=== PATIENT | female | born 1955 | race Caucasian/White ===

== ENCOUNTER → 2016-10-24 | Outpatient (CLI) | payer BC ==
[~2016-10-24] MED LIST: ENOXAPARIN; EST30C VG; GLUC1TAB60 PO; HYDR-3583 PO; LORA1TAB PO; MELA1TAB10 PO; MELATONIN; MULT-608; MULT-608 PO; [UNRECOGNIZED DRUG - CODE]
--- NOTE | 2016-10-26 09:34 | Diagnostic Imaging Report ---
PET/CT. INDICATION: Colon carcinoma, carcinoma of the lung. EXAMINATION: After intravenous administration of 13.97 mCi of F18-FDG, a series of overlapping emission and transmission PET images was obtained. In the coronal, transaxial and sagittal planes, the area imaged extended from the skull base through the upper thighs. FINDINGS: The previous PET/CT exam performed on 10/11/2010 noted a small hypermetabolic focus involving the right lobe of the liver. This had a maximum SUV of 4.2 and this finding was felt to be suspicious for metastatic disease. The CT images do show that there is a 1.4 x 1.5 cm area of diminished density along the anterior aspect of the right lobe of the liver. This finding was not clearly evident on the prior exam. However, there is no hypermetabolic activity in this area to suggest that this area of diminished density is neoplastic in nature. There is a small 0.8 x 1.2 cm rounded area of low density in the midportion of the right lobe of the liver. This was present on the prior study. On the previous exam, this measured approximately 0.9 x 1.0 cm. I suspect that this is a benign process such as a cyst. The liver is otherwise unremarkable. In the left upper lobe of the lung, there is an irregular 1.6 x 2.5 cm partially calcified parenchymal mass with spiculation. This finding was not present on the prior exam and consequently is worrisome for neoplasm. However, the maximum SUV in this area is only 2.5. There is no other hypermetabolic activity within the thorax identified. The remainder of the PET/CT is stable when compared to the previous study. No new area of hypermetabolic activity has developed. There is increased activity about the right shoulder joint. Most likely, this is due to degenerative disease. There is also physiologic activity in the kidneys, bowel, bladder, brain, and heart. IMPRESSION: 1. There is a poorly defined parenchymal density in the left upper lung. This area has a maximum SUV of only 2.4, however. Even so, the CT appearance of the lesion does suggest it is neoplastic in nature. 2. There is no other hypermetabolic focus to suggest the presence of neoplasm. In particular, there is no abnormal activity involving the liver. 3. These results were discussed with Dr. Yola Espinoza. Dictated by: Dictated on workstation # [id number]
== END ==
LOC: RAD 08:15
PROVIDERS: ATTEND Internal Medicine Hematology & Oncology
DX: C18.9 Malignant neoplasm of colon, unspecified (principal); R91.8 Other nonspecific abnormal finding of lung field

== ENCOUNTER 2016-11-29 14:58 | Outpatient (RCR) | payer BC ==
[2016-10-12 14:30] LABS: BASOPHILS % (AUTO) 0 % (0-10); EOSINOPHILS # (AUTO) 0.2 10^3/uL (0.0-0.3); EOSINOPHILS % (AUTO) 5 % (0-10); LYMPHOCYTES # (AUTO) 1.7 X 10^3 (1.0-4.0); LYMPHOCYTES % (AUTO) 33 % (12-44); MEAN CORPUSCULAR HEMOGLOBIN 31 PG (25-34); MEAN CORPUSCULAR HGB CONC 33 G/DL (32-36); MEAN CORPUSCULAR VOLUME 93 FL (80-99); MEAN PLATELET VOLUME 10.8 FL (7.4-10.4); MONOCYTES # (AUTO) 0.5 X 10^3 (0.0-1.0); MONOCYTES % (AUTO) 10 % (0-12); NEUTROPHILS # (AUTO) 2.6 X 10^3 (1.8-7.8); NEUTROPHILS % (AUTO) 52 % (42-75); PLATELET COUNT 147 10^3/uL (130-400); RED BLOOD COUNT 4.19 10^6/uL (4.35-5.85); RED CELL DISTRIBUTION WIDTH 13.1 % (10.0-14.5)
[2016-10-12 15:21] LABS: ALANINE AMINOTRANSFERASE 16 U/L (0-55); ANION GAP 6 MMOL/L (5-14); ASPARTATE AMINO TRANSFERASE 18 U/L (5-34); BILIRUBIN,TOTAL 0.2 MG/DL (0.1-1.0); BLOOD UREA NITROGEN 16 MG/DL (7-18); BUN/CREATININE RATIO 23; CALCIUM 9.1 MG/DL (8.5-10.1); CARBON DIOXIDE 28 MMOL/L (21-32); CHLORIDE 106 MMOL/L (98-107); CREATININE SERUM 0.71 MG/DL (0.60-1.30); GFR ESTIMATED > 60; GLUCOSE 108 MG/DL (70-105); POTASSIUM 4.3 MMOL/L (3.6-5.0); SODIUM 140 MMOL/L (135-145); TOTAL PROTEIN 6.5 G/DL (6.4-8.2)
[~2016-11-29 14:58] MED LIST changes: -EST30C VG; -MELA1TAB10 PO
[2016-11-29 15:16] LABS: BASOPHILS % (AUTO) 0 % (0-10); EOSINOPHILS # (AUTO) 0.2 10^3/uL (0.0-0.3); EOSINOPHILS % (AUTO) 3 % (0-10); LYMPHOCYTES # (AUTO) 1.8 X 10^3 (1.0-4.0); LYMPHOCYTES % (AUTO) 35 % (12-44); MEAN CORPUSCULAR HEMOGLOBIN 31 PG (25-34); MEAN CORPUSCULAR HGB CONC 34 G/DL (32-36); MEAN CORPUSCULAR VOLUME 91 FL (80-99); MEAN PLATELET VOLUME 10.8 FL (7.4-10.4); MONOCYTES # (AUTO) 0.5 X 10^3 (0.0-1.0); MONOCYTES % (AUTO) 11 % (0-12); NEUTROPHILS # (AUTO) 2.5 X 10^3 (1.8-7.8); NEUTROPHILS % (AUTO) 51 % (42-75); PLATELET COUNT 170 10^3/uL (130-400); RED BLOOD COUNT 4.15 10^6/uL (4.35-5.85); RED CELL DISTRIBUTION WIDTH 13.3 % (10.0-14.5)
[2016-11-29 16:01] LABS: PROTHROMBIN TIME PATIENT 12.9 SEC (12.2-14.7)
[2016-11-29 16:09] LABS: ALANINE AMINOTRANSFERASE 13 U/L (0-55); ALBUMIN 3.8 G/DL (3.2-4.5); ANION GAP 5 MMOL/L (5-14); ASPARTATE AMINO TRANSFERASE 17 U/L (5-34); BILIRUBIN,TOTAL 0.3 MG/DL (0.1-1.0); BLOOD UREA NITROGEN 15 MG/DL (7-18); BUN/CREATININE RATIO 22; CALCIUM 8.9 MG/DL (8.5-10.1); CARBON DIOXIDE 26 MMOL/L (21-32); CHLORIDE 108 MMOL/L (98-107); CREATININE SERUM 0.68 MG/DL (0.60-1.30); GFR ESTIMATED > 60; GLUCOSE 91 MG/DL (70-105); POTASSIUM 4.2 MMOL/L (3.6-5.0); SODIUM 139 MMOL/L (135-145); TOTAL PROTEIN 6.3 G/DL (6.4-8.2)
[2016-12-14] MEDS ORDERED: MELA1TAB10 PO (16:44)
[2016-12-14] MEDS ORDERED: EST30C VG (16:44)
== END 2017-01-10 | disposition home or self-care (01) ==
LOC: ONC 14:58
PROVIDERS: ATTEND Internal Medicine Hematology & Oncology
DX: C18.9 Malignant neoplasm of colon, unspecified (principal); C78.7 Secondary malignant neoplasm of liver and intrahepatic bile duct; R91.8 Other nonspecific abnormal finding of lung field
CPT/HCPCS: 36415; 80053; 82378; 85025; 85610; 99213; 99214

== ENCOUNTER 2016-12-14 08:12 | Day surgery (SDC) | payer BC ==
[2016-12-14] VITALS (19 sets, daily range): BP systolic 106–143; BP diastolic 57–74
[~2016-12-14] VITALS: Ht 171.4 cm; Wt 72.8 kg
[2016-12-14 09:25] LABS: MEAN PLATELET VOLUME 11.5 FL (7.4-10.4); RED BLOOD COUNT 4.42 10^6/uL (4.35-5.85); RED CELL DISTRIBUTION WIDTH 13.1 % (10.0-14.5); WHITE BLOOD COUNT 3.8 10^3/uL (4.3-11.0)
[2016-12-14 09:33] LABS: PROTHROMBIN TIME PATIENT 12.8 SEC (12.2-14.7)
[2016-12-14] MEDS ORDERED: fentaNYL INJECTION 100 MCG/2 ML AMP ONE (09:48)
[2016-12-14] MEDS ORDERED: LIDOCAINE 1% INJ 20 ML (XYLOCAINE) VIAL ONE (10:04)
[2016-12-14] MEDS ORDERED: fentaNYL INJECTION 100 MCG/2 ML AMP IVP ONE (10:15)
--- NOTE | 2016-12-14 10:55 | Pre-Procedure Progress Note ---
Pre-Procedure Progress Note H&P Reviewed The H&P was reviewed, patient examined and no changes noted. Date H&P Reviewed: Dec 14, 2016 Time H&P Reviewed: 09:40 Pre-Procedure Diagnosis: lung nodule BALDO WRIGHT MD Dec 14, 2016 10:55
[2016-12-14] MEDS ORDERED: LIDOCAINE 1% INJ 20 ML (XYLOCAINE) VIAL INJ ONE (11:00)
[2016-12-14] MEDS ORDERED: HYDROcodone/APAP 5 MG/325 MG (LORTAB) TAB PO PRN (11:00)
--- NOTE | 2016-12-14 11:38 | Diagnostic Imaging Report ---
EXAMINATION: CT-guided biopsy-lung. INDICATION: Left upper lobe lung nodule. Current history and physical and other medical records are reviewed prior to the procedure. CONSENT: Informed consent was obtained from the patient. The risks, benefits, potential complications and alternatives were reviewed and all questions answered to the patient's satisfaction. The patient's vital signs, cardiac rhythm, and pulse oximetry were observed throughout the procedure by qualified nursing personnel. Sedation/medications: none. FINDINGS: Left upper lobe nodule. PROCEDURE: After maximal sterile barrier technique preparation and draping, 1% lidocaine was utilized for local anesthesia. With the patient in supine position, and via anterior and posterior approach, a 19-gauge guide needle is introduced into the left upper lobe lung nodule under CT scan guidance. After confirming adequate positioning with saved CT images, multiple 20 gauge core biopsy specimens were obtained. 2 cc of autologous blood patch injected in the tract as the guide needle was removed The patient tolerated the procedure well. There is unfortunately development of about 15 % pneumothorax. This is not accompanied by shortness of breath or chest pain and repeat CT scan after 5 minutes of finishing the biopsy demonstrate stable pneumothorax. IMPRESSION: 1. Successful CT-guided biopsy of upper lobe pulmonary nodule. 2. Asymptomatic 15% left pneumothorax. This will be monitored with the chest x-rays. A pneumothorax tube is not needed at this time. Dictated by: Dictated on workstation # [id number]
[2016-12-14] MEDS ORDERED: EST30C VG ×2 (16:44)
[2016-12-14] MEDS ORDERED: MELA1TAB10 PO ×2 (16:44)
--- NOTE | 2016-12-14 18:21 | Diagnostic Imaging Report ---
Portable upright radiograph of the chest. INDICATION: Post lung biopsy. FINDINGS: There is a 10% left pneumothorax. Lung sutures are seen in the perihilar and upper left lung. The right lung is clear. The heart size is borderline enlarged. No pleural effusion. IMPRESSION: 10% left pneumothorax. Stable or minimally smaller compared to the recent CT. Dictated by: Dictated on workstation # [id number]
--- NOTE | 2016-12-14 19:49 | Diagnostic Imaging Report ---
Portable upright radiograph of the chest. INDICATION: Followup pneumothorax after lung biopsy. FINDINGS: There is a 15% left pneumothorax which appears minimally more prominent compared to the previous study. The right lung is clear. There are left upper lobe sutures again noted and left perihilar atelectasis. The heart size is at the upper limits of normal. No effusion or pneumothorax. The mediastinum and katheryn appear stable. IMPRESSION: Question of minimal increase in left pneumothorax at about 15% at this time. Dictated by: Dictated on workstation # [id number]
== END 2016-12-14 15:59 | disposition home or self-care (01) ==
LOC: RAD 08:12 → SURG 13:04 → RAD 15:59
PROVIDERS: ATTEND Internal Medicine Hematology & Oncology
DX: R91.1 Solitary pulmonary nodule (principal); J95.811 Postprocedural pneumothorax; C18.7 Malignant neoplasm of sigmoid colon; C78.7 Secondary malignant neoplasm of liver and intrahepatic bile duct
CPT/HCPCS: 36415; 71035; 77012; 85027; 85610; 85730; 88305

== ENCOUNTER 2016-12-14 14:59 | Observation (INO) | payer BC ==
[~2016-12-14] VITALS: Ht 170.2 cm; Wt 67.8 kg
[2016-12-14] MEDS ORDERED: ONDANSETRON 4 MG/2 ML (SDV) Z0FRAN IVP PRN (15:15)
[2016-12-14] MEDS ORDERED: ACETAMINOPHEN 500 MG TAB (TYLENOL) PO PRN (15:15)
[2016-12-14] MEDS ORDERED: fentaNYL INJECTION 100 MCG/2 ML AMP IVP PRN (15:15)
[2016-12-14] MEDS ORDERED: ALPRAZolam 0.25 MG (XANAX) TAB PO PRN (15:15)
[2016-12-14] MEDS ORDERED: MELA1TAB10 PO ×2 (16:44)
[2016-12-14] MEDS ORDERED: EST30C VG ×2 (16:44)
[2016-12-14 17:59] VITALS: BP 128/60
--- NOTE | 2016-12-14 19:29 | Consultation ---
History of Present Illness History of Present Illness Patient Consulted On(denny/time) 12/14/16 19:24 Date of Admission History of Present Illness Pt is a 59 yo female who was admitted after having a CT guided biopsy for lung CA. Unfortunately CT after the biopsy showed PTX. Repeat CXR then showed possible increasing PTX, radiologist read it as 15% PTX. Pt seen now has no complaints of chest pain, denies any SOB. She has been talking to her 2 daughters and walking around room , all without any breathing difficulties. She does have O2 on now, but nurse said pulse Ox is 97% on 1 Liter. Tolerating diet. Allergies and Home Medications Allergies Coded Allergies: No Known Drug Allergies (Verified Allergy, Unknown, 10/15/09) Home Medications Estrogens Conjugated 30 Gm Cr, 0.5 APPLIC VG 2 TIMES PER WEEK, (Reported) Melatonin/Pyridoxine 1 Each Tablet, 3 MG PO HS PRN for SLEEP, (Reported) Past Cgjjgwf-Jougog-Hiaoqw Hx Patient Social History Alcohol Use: Occasionally Uses Recreational Drug Use: No Smoking Status: Former Smoker Recent Foreign Travel: No Contact w/Someone Who Travel: No Recent Infectious Disease Expo: No Recent Hopitalizations: Yes Physical Abuse Screen: No Sexual Abuse: No Seasonal Allergies Seasonal Allergies: Yes Surgeries HX Surgeries: Yes (EXCISION LESION OF LEG) Surgeries: Abdominal (colon resection for colon CA), Lobectomy (for lung CA) Respiratory Hx Respiratory Disorders: No Cardiovascular Hx Cardiac Disorders: No Neurological Hx Neurological Disorders: No Reproductive System Hx Reproductive Disorders: No Sexually Transmitted Disease: No HIV/AIDS: No Female Reproductive Disorders: Denies Genitourinary Hx Genitourinary Disorders: No Gastrointestinal Hx Gastrointestinal Disorders: No Gastrointestinal Disorders: Hepatitis Musculoskeletal Hx Musculoskeletal Disorders: No Endocrine Hx Endocrine Disorders: No HEENT HX ENT Disorders: No Loss of Vision: Denies Hearing Impairment: Denies Cancer Hx Cancer: Yes Cancer: Liver, Lung, Colon Psychosocial Hx Psychiatric Problems: No Behavioral Health Disorders: Anxiety Blood Transfusions Hx Blood Disorders: Yes (Hepatitis B) Adverse Reaction to a Blood Tr: No Family Medical History Significant Family History: GI Disease (brother had colon polyps ), Lung Disease (mother of metastatic lung CA) Family Medial History: Alcoholism 19 FATHER Asthma 19 MOTHER G8 BROTHER Severe allergy G8 BROTHER Visual disorder 19 FATHER 19 MOTHER Review of Systems-General Constitutional: No chills, No diaphoresis, No dizziness, No weakness EENTM: No blurred vision, No double vision, No epistaxis, No mouth swelling, No throat swelling Respiratory: No cough, No dyspnea on exertion Cardiovascular: No chest pain, No palpitations Gastrointestinal: No abdominal pain, No hematemesis Musculoskeletal: No back pain, No joint pain Psychiatric/Neurological: Denies Anxiety, Denies Depressed Physical Exam-General Problems Physical Exam Vital Signs Vital Sign - Last 12Hours 12/14/16 12/14/16 16:30 17:59 Temp 97.9 Pulse 50 Resp 18 B/P (MAP) 128/60 O2 Delivery Nasal Cannula O2 Flow Rate 1.00 Capillary Refill : General Appearance: WD/WN, no apparent distress Eyes: Bilateral Eye EOMI, Bilateral Eye PERRL HEENT: pharynx normal, No scleral icterus (R), No scleral icterus (L) Neck: non-tender, full range of motion, supple Respiratory: chest non-tender, normal breath sounds, no respiratory distress, no accessory muscle use, other (mild decreased breath sounds at apex of left lung) Cardiovascular: regular rate, rhythm, no murmur Gastrointestinal: normal bowel sounds, non tender, no organomegaly, no pulsatile mass Extremities: normal range of motion, no pedal edema, no calf tenderness Neurologic/Psychiatric: 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 Will monitor and reassess sooner if needed. Pt will only need chest tube placement if PTX gets worse; probably at least 25% or more. If CXR is not worse can be sent home first thing in am. Thank you for this consult. Diagnosis/Problems Diagnosis/Problems (1) Pneumothorax of left lung after biopsy Status: Acute Clinical Quality Measures DVT/VTE Risk/Contraindication: Risk Factor Score Per Nursin RFS Level Per Nursing on Admit: 3=High ARMANDO OLIVAS DO Dec 14, 2016 19:29
[2016-12-14 20:00] VITALS: BP 114/59
[2016-12-14] MEDS: HYDROcodone/APAP 5 MG/325 MG (LORTAB) TAB PO PRN (23:41)
[2016-12-15 00:17] VITALS: BP 101/68
[2016-12-15 04:01] VITALS: BP 108/51
--- NOTE | 2016-12-15 07:26 | Diagnostic Imaging Report ---
Portable upright radiograph of the chest. INDICATION: Followup pneumothorax after lung biopsy. FINDINGS: The left pneumothorax now is slightly smaller, estimated at 5%. There is postsurgical changes in the left upper lobe and 1.5 CM left suprahilar nodule. The heart size is normal. No effusion or pneumothorax on the right side. The right lung is clear. IMPRESSION: 1. Improving left pneumothorax, at about 5% at this time. 2. 1.5 CM left suprahilar nodule. Dictated by: Dictated on workstation # [id number]
[2016-12-15 08:00] VITALS: BP 109/58
[2016-12-15] MEDS: HYDROcodone/APAP 5 MG/325 MG (LORTAB) TAB PO PRN (08:01)
--- NOTE | 2016-12-15 09:58 | Discharge Instructions ---
Discharge Instructions Discharge Medications New, Converted or Re-Newed RX: Other (no new meds) Continued Medications: Estrogens Conjugated (Premarin) 30 Gm Cr 0.5 APPLIC VG 2 TIMES PER WEEK, TUBE Melatonin/Pyridoxine (Melatonin 3 mg Tablet) 1 Each Tablet 3 MG PO HS PRN for SLEEP, TAB Patient Instructions Goal/Follow Up Appt: Dr. Espinoza as scheduled for biopsy results Activity & Diet Discharge Diet: No Restrictions Activity as Tolerated: Yes ADITYA OLIVER DO Dec 15, 2016 09:58
[2016-12-15] MEDS ORDERED: ESTROGENS CONJ. CREAM 30 GM (PREMARIN) TUBE VG SCH (10:00)
--- NOTE | 2016-12-15 10:02 | Short Stay Summary-Hospitalist ---
HPI History of Present Illness: HPI/Chief Complaint CC: Left-sided pneumothorax possibly expanding following CT-guided biopsy HPI: This is a 61-year-old white female with a history of colon cancer that is treated at [facility] and Dr. [facility] that is actually establish in my clinic that required admission for observation status following a left-sided pneumothorax iatrogenic following a CT-guided lung biopsy to evaluate the source of the mass. She had no difficulties with breathing following the procedure but one hour later after the procedure the chest x-ray showed expanding pneumothorax to [address] her in observation monitor closely and consulted Dr. Charlton for possible chest tube placement if the pneumothorax expanded and overall she has been doing well over the nighttime hours. 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) Alcohol Use: Occasionally Uses Recreational Drug Use: No Smoking Status: Former Smoker Physical Abuse Screen: No Sexual Abuse: No Recent Foreign Travel: No Contact w/other who traveled: No Recent Hopitalizations: Yes Recent Infectious Disease Expo: No Seasonal Allergies Seasonal Allergies: Yes Surgeries HX Surgeries: Yes (EXCISION LESION OF LEG) Surgeries: Abdominal (colon resection for colon CA), Lobectomy (for lung CA) Respiratory Hx Respiratory Disorders: No Cardiovascular Hx Cardiovascular Disorders: No Neurological Hx Neurological Disorders: No Reproductive System Hx Reproductive Disorders: No Sexually Transmitted Disease: No HIV/AIDS: No Female Reproductive Disorders: Denies Genitourinary Hx Genitourinary Disorders: No Gastrointestinal Hx Gastrointestinal Disorders: Yes Gastrointestinal Disorders: Hepatitis Musculoskeletal Hx Musculoskeletal Disorders: No Endocrine Hx Endocrine Disorders: No HEENT HX ENT Disorders: No Loss of Vision: Denies Hearing Impairment: Denies Cancer Hx Cancer: Yes Cancer: Liver, Lung, Colon Psychosocial Hx Psychiatric Problems: No Behavioral Health Disorders: Anxiety Blood Transfusions Hx Blood Disorders: Yes (Hepatitis B) Adverse Reaction to a Blood Tr: No Family Medical History Significant Family History: GI Disease (brother had colon polyps ), Lung Disease (mother of metastatic lung CA) Family Hx: Alcoholism 19 FATHER Asthma 19 MOTHER G8 BROTHER Severe allergy G8 BROTHER Visual disorder 19 FATHER 19 MOTHER Review of Systems Constitutional: see HPI EENTM: no symptoms reported Respiratory: no symptoms reported Cardiovascular: no symptoms reported Gastrointestinal: no symptoms reported Genitourinary: no symptoms reported Musculoskeletal: no symptoms reported Skin: no symptoms reported Psychiatric/Neurological: No Symptoms Reported All Other Systems Reviewed Negative Unless Noted: Yes Physical Exam Physical Exam Vital Signs Vital Sign - Last 12Hours 12/14/16 12/14/16 12/14/16 16:30 17:59 20:00 Temp 97.9 Pulse 50 Resp 18 B/P (MAP) 128/60 Pulse Ox 95 O2 Delivery Nasal Cannula O2 Flow Rate 1.00 Capillary Refill : General Appearance: No Apparent Distress, WD/WN, Chronically ill Eyes: Bilateral Eye Normal Inspection, Bilateral Eye PERRL HEENT: PERRL/EOMI, Normal ENT Inspection, Pharynx Normal Neck: Full Range of Motion, Normal Inspection, Non Tender, Supple, Carotid Bruit Respiratory: Chest Non Tender, Lungs Clear, Normal Breath Sounds, No Accessory Muscle Use, No Respiratory Distress Cardiovascular: Regular Rate, Rhythm, No Edema, No Gallop, No JVD, No Murmur, Normal Peripheral Pulses Gastrointestinal: Normal Bowel Sounds, No Organomegaly, No Pulsatile Mass, Non Tender, Soft Back: Normal Inspection, No CVA Tenderness, No Vertebral Tenderness Extremity: Normal Capillary Refill, Normal Inspection, Normal Range of Motion, Non Tender, No Calf Tenderness, No Pedal Edema Neurologic/Psychiatric: Alert, Oriented x3, No Motor/Sensory Deficits, Normal Mood/Affect Skin: Normal Color, Warm/Dry Lymphatic: No Adenopathy Short Stay Diagnosis Discharge Diagnosis-Short Stay Admission Diagnosis Assessment: Left-sided pneumothorax following CT-guided biopsy for lung mass previously expanded after one hour of procedure but now down to 5 percent and ready for discharge Colon cancer manage at [facility] and Dr. Espinoza Atrophic vaginitis on Premarin cream once a week Final Discharge Diagnosis Assessment: Left-sided pneumothorax following CT-guided biopsy for lung mass previously expanded after one hour of procedure but now down to 5 percent and ready for discharge Colon cancer manage at [facility] and Dr. Espinoza Atrophic vaginitis on Premarin cream once a week Conclusion Plan Plan: Discharge home Monitor closely in the meantime and return if shortness of breath occurs Diagnosis/Problems Diagnosis/Problems (1) Pneumothorax of left lung after biopsy Status: Acute Clinical Quality Measures DVT/VTE Risk/Contraindication: Risk Factor Score Per Nursin RFS Level Per Nursing on Admit: 3=High MAYDA MADRIGAL DO Dec 15, 2016 10:02
[2016-12-15 11:10] VITALS: BP 110/60
== END 2016-12-15 09:57 | disposition home or self-care (01) ==
LOC: UNDOADMOB 16:00 → 4TH 16:00 → UNDODISOB 12-15 11:10
PROVIDERS: ADMIT Internal Medicine; ATTEND Internal Medicine
DX: J95.811 Postprocedural pneumothorax (principal); C34.92 Malignant neoplasm of unspecified part of left bronchus or lung; Z87.891 Personal history of nicotine dependence
CPT/HCPCS: 71010; 99211; G0378

== ENCOUNTER → 2017-06-05 | Outpatient (CLI) | payer BC ==
[~2017-06-05] MED LIST changes: +EST30C VG; +MELA1TAB10 PO
== END ==
LOC: RAD 15:13
PROVIDERS: ATTEND Internal Medicine
DX: Z12.31 Encounter for screening mammogram for malignant neoplasm of breast (principal)
CPT/HCPCS: 77067

== ENCOUNTER 2018-03-15 14:08 | Outpatient (RCR) | payer BC, OTHER ==
[2018-01-02 15:43] LABS: BASOPHILS % (AUTO) 1 % (0-10); EOSINOPHILS # (AUTO) 0.2 10^3/uL (0.0-0.3); EOSINOPHILS % (AUTO) 4 % (0-10); HEMATOCRIT 37 % (35-52); HEMOGLOBIN 12.5 G/DL (11.5-16.0); LYMPHOCYTES # (AUTO) 1.3 X 10^3 (1.0-4.0); LYMPHOCYTES % (AUTO) 30 % (12-44); MEAN CORPUSCULAR HEMOGLOBIN 31 PG (25-34); MEAN CORPUSCULAR HGB CONC 34 G/DL (32-36); MEAN CORPUSCULAR VOLUME 91 FL (80-99); MEAN PLATELET VOLUME 10.6 FL (7.4-10.4); MONOCYTES # (AUTO) 0.5 X 10^3 (0.0-1.0); MONOCYTES % (AUTO) 12 % (0-12); NEUTROPHILS # (AUTO) 2.2 X 10^3 (1.8-7.8); NEUTROPHILS % (AUTO) 53 % (42-75); PLATELET COUNT 151 10^3/uL (130-400); RED BLOOD COUNT 4.08 10^6/uL (4.35-5.85); RED CELL DISTRIBUTION WIDTH 13.4 % (10.0-14.5); WHITE BLOOD COUNT 4.2 10^3/uL (4.3-11.0)
[2018-01-02 15:59] LABS: ALANINE AMINOTRANSFERASE 12 U/L (0-55); ALBUMIN 4.2 GM/DL (3.2-4.5); ALKALINE PHOSPHATASE 85 U/L (40-136); BILIRUBIN,TOTAL 0.4 MG/DL (0.1-1.0); BUN/CREATININE RATIO 17; CALCIUM 9.6 MG/DL (8.5-10.1); CARBON DIOXIDE 28 MMOL/L (21-32); CHLORIDE 106 MMOL/L (98-107); CREATININE SERUM 0.78 MG/DL (0.60-1.30); GFR ESTIMATED > 60; GLUCOSE 94 MG/DL (70-105); POTASSIUM 4.4 MMOL/L (3.6-5.0); SODIUM 140 MMOL/L (135-145); TOTAL PROTEIN 7.3 GM/DL (6.4-8.2)
[2018-01-16 16:23] LABS: BASOPHILS % (AUTO) 1 % (0-10); EOSINOPHILS # (AUTO) 0.2 10^3/uL (0.0-0.3); EOSINOPHILS % (AUTO) 5 % (0-10); HEMATOCRIT 37 % (35-52); HEMOGLOBIN 12.1 G/DL (11.5-16.0); LYMPHOCYTES # (AUTO) 1.4 X 10^3 (1.0-4.0); LYMPHOCYTES % (AUTO) 50 % (12-44); MEAN CORPUSCULAR HEMOGLOBIN 30 PG (25-34); MEAN CORPUSCULAR HGB CONC 33 G/DL (32-36); MEAN CORPUSCULAR VOLUME 91 FL (80-99); MEAN PLATELET VOLUME 10.7 FL (7.4-10.4); MONOCYTES # (AUTO) 0.3 X 10^3 (0.0-1.0); MONOCYTES % (AUTO) 12 % (0-12); NEUTROPHILS % (AUTO) 33 % (42-75); PLATELET COUNT 119 10^3/uL (130-400); RED CELL DISTRIBUTION WIDTH 12.7 % (10.0-14.5); WHITE BLOOD COUNT 2.9 10^3/uL (4.3-11.0)
[2018-01-16 16:35] LABS: BUN/CREATININE RATIO 25; CALCIUM 9.5 MG/DL (8.5-10.1); CARBON DIOXIDE 26 MMOL/L (21-32); CHLORIDE 103 MMOL/L (98-107); CREATININE SERUM 0.64 MG/DL (0.60-1.30); GFR ESTIMATED > 60; GLUCOSE 81 MG/DL (70-105); SODIUM 139 MMOL/L (135-145)
[2018-01-23 15:52] LABS: BASOPHILS % (AUTO) 0 % (0-10); EOSINOPHILS # (AUTO) 0.1 10^3/uL (0.0-0.3); EOSINOPHILS % (AUTO) 2 % (0-10); HEMATOCRIT 34 % (35-52); HEMOGLOBIN 11.1 G/DL (11.5-16.0); LYMPHOCYTES # (AUTO) 1.4 X 10^3 (1.0-4.0); LYMPHOCYTES % (AUTO) 34 % (12-44); MEAN CORPUSCULAR HEMOGLOBIN 30 PG (25-34); MEAN CORPUSCULAR HGB CONC 33 G/DL (32-36); MEAN CORPUSCULAR VOLUME 92 FL (80-99); MEAN PLATELET VOLUME 9.7 FL (7.4-10.4); MONOCYTES # (AUTO) 0.5 X 10^3 (0.0-1.0); MONOCYTES % (AUTO) 14 % (0-12); NEUTROPHILS % (AUTO) 50 % (42-75); PLATELET COUNT 118 10^3/uL (130-400); RED BLOOD COUNT 3.66 10^6/uL (4.35-5.85); RED CELL DISTRIBUTION WIDTH 12.7 % (10.0-14.5); WHITE BLOOD COUNT 3.9 10^3/uL (4.3-11.0)
[2018-01-23 16:16] LABS: ALANINE AMINOTRANSFERASE 17 U/L (0-55); ALKALINE PHOSPHATASE 90 U/L (40-136); BILIRUBIN,TOTAL 0.2 MG/DL (0.1-1.0); BUN/CREATININE RATIO 22; CALCIUM 9.4 MG/DL (8.5-10.1); CARBON DIOXIDE 27 MMOL/L (21-32); CHLORIDE 108 MMOL/L (98-107); CREATININE SERUM 0.77 MG/DL (0.60-1.30); GFR ESTIMATED > 60; GLUCOSE 93 MG/DL (70-105); POTASSIUM 4.4 MMOL/L (3.6-5.0); SODIUM 142 MMOL/L (135-145); TOTAL PROTEIN 6.7 GM/DL (6.4-8.2)
[2018-01-30 10:36] LABS: BASOPHILS % (AUTO) 0 % (0-10); EOSINOPHILS % (AUTO) 0 % (0-10); HEMATOCRIT 36 % (35-52); HEMOGLOBIN 12.1 G/DL (11.5-16.0); LYMPHOCYTES # (AUTO) 0.8 X 10^3 (1.0-4.0); LYMPHOCYTES % (AUTO) 22 % (12-44); MEAN CORPUSCULAR HEMOGLOBIN 31 PG (25-34); MEAN CORPUSCULAR HGB CONC 34 G/DL (32-36); MEAN CORPUSCULAR VOLUME 91 FL (80-99); MEAN PLATELET VOLUME 9.7 FL (7.4-10.4); MONOCYTES # (AUTO) 0.4 X 10^3 (0.0-1.0); MONOCYTES % (AUTO) 11 % (0-12); NEUTROPHILS # (AUTO) 2.4 X 10^3 (1.8-7.8); NEUTROPHILS % (AUTO) 67 % (42-75); PLATELET COUNT 278 10^3/uL (130-400); RED BLOOD COUNT 3.93 10^6/uL (4.35-5.85); RED CELL DISTRIBUTION WIDTH 14.3 % (10.0-14.5); WHITE BLOOD COUNT 3.6 10^3/uL (4.3-11.0)
[2018-01-30 10:53] LABS: ALANINE AMINOTRANSFERASE 16 U/L (0-55); ALBUMIN 4.1 GM/DL (3.2-4.5); ALKALINE PHOSPHATASE 81 U/L (40-136); BILIRUBIN,TOTAL 0.3 MG/DL (0.1-1.0); BUN/CREATININE RATIO 17; CALCIUM 9.6 MG/DL (8.5-10.1); CARBON DIOXIDE 21 MMOL/L (21-32); CHLORIDE 112 MMOL/L (98-107); CREATININE SERUM 0.69 MG/DL (0.60-1.30); GFR ESTIMATED > 60; GLUCOSE 100 MG/DL (70-105); POTASSIUM 4.1 MMOL/L (3.6-5.0); SODIUM 142 MMOL/L (135-145); TOTAL PROTEIN 6.7 GM/DL (6.4-8.2)
[2018-02-06 17:08] LABS: BASOPHILS % (AUTO) 0 % (0-10); EOSINOPHILS # (AUTO) 0.1 10^3/uL (0.0-0.3); EOSINOPHILS % (AUTO) 4 % (0-10); HEMATOCRIT 34 % (35-52); HEMOGLOBIN 11.5 G/DL (11.5-16.0); LYMPHOCYTES # (AUTO) 1.3 X 10^3 (1.0-4.0); LYMPHOCYTES % (AUTO) 50 % (12-44); MEAN CORPUSCULAR HEMOGLOBIN 31 PG (25-34); MEAN CORPUSCULAR HGB CONC 34 G/DL (32-36); MEAN CORPUSCULAR VOLUME 91 FL (80-99); MEAN PLATELET VOLUME 9.4 FL (7.4-10.4); MONOCYTES # (AUTO) 0.3 X 10^3 (0.0-1.0); MONOCYTES % (AUTO) 13 % (0-12); NEUTROPHILS # (AUTO) 0.8 X 10^3 (1.8-7.8); NEUTROPHILS % (AUTO) 33 % (42-75); PLATELET COUNT 116 10^3/uL (130-400); RED BLOOD COUNT 3.74 10^6/uL (4.35-5.85); WHITE BLOOD COUNT 2.6 10^3/uL (4.3-11.0)
[2018-02-06 17:27] LABS: BUN/CREATININE RATIO 26; CALCIUM 9.5 MG/DL (8.5-10.1); CARBON DIOXIDE 26 MMOL/L (21-32); CHLORIDE 106 MMOL/L (98-107); CREATININE SERUM 0.73 MG/DL (0.60-1.30); GFR ESTIMATED > 60; GLUCOSE 94 MG/DL (70-105); SODIUM 139 MMOL/L (135-145)
[2018-02-13 14:49] LABS: BASOPHILS % (AUTO) 0 % (0-10); EOSINOPHILS # (AUTO) 0.1 10^3/uL (0.0-0.3); EOSINOPHILS % (AUTO) 2 % (0-10); HEMATOCRIT 33 % (35-52); HEMOGLOBIN 11.1 G/DL (11.5-16.0); LYMPHOCYTES # (AUTO) 1.4 X 10^3 (1.0-4.0); LYMPHOCYTES % (AUTO) 42 % (12-44); MEAN CORPUSCULAR HEMOGLOBIN 31 PG (25-34); MEAN CORPUSCULAR HGB CONC 33 G/DL (32-36); MEAN CORPUSCULAR VOLUME 92 FL (80-99); MEAN PLATELET VOLUME 10.9 FL (7.4-10.4); MONOCYTES # (AUTO) 0.4 X 10^3 (0.0-1.0); MONOCYTES % (AUTO) 13 % (0-12); NEUTROPHILS # (AUTO) 1.4 X 10^3 (1.8-7.8); NEUTROPHILS % (AUTO) 43 % (42-75); PLATELET COUNT 89 10^3/uL (130-400); RED BLOOD COUNT 3.61 10^6/uL (4.35-5.85); RED CELL DISTRIBUTION WIDTH 14.3 % (10.0-14.5); WHITE BLOOD COUNT 3.3 10^3/uL (4.3-11.0)
[2018-02-13 15:12] LABS: BUN/CREATININE RATIO 17; CARBON DIOXIDE 25 MMOL/L (21-32); CHLORIDE 108 MMOL/L (98-107); CREATININE SERUM 0.75 MG/DL (0.60-1.30); GFR ESTIMATED > 60; GLUCOSE 110 MG/DL (70-105); SODIUM 141 MMOL/L (135-145)
[2018-02-20 10:58] LABS: BASOPHILS % (AUTO) 0 % (0-10); EOSINOPHILS % (AUTO) 0 % (0-10); HEMATOCRIT 34 % (35-52); HEMOGLOBIN 11.6 G/DL (11.5-16.0); LYMPHOCYTES # (AUTO) 0.9 X 10^3 (1.0-4.0); LYMPHOCYTES % (AUTO) 21 % (12-44); MEAN CORPUSCULAR HEMOGLOBIN 32 PG (25-34); MEAN CORPUSCULAR HGB CONC 34 G/DL (32-36); MEAN CORPUSCULAR VOLUME 92 FL (80-99); MEAN PLATELET VOLUME 9.6 FL (7.4-10.4); MONOCYTES # (AUTO) 0.6 X 10^3 (0.0-1.0); MONOCYTES % (AUTO) 15 % (0-12); NEUTROPHILS # (AUTO) 2.7 X 10^3 (1.8-7.8); NEUTROPHILS % (AUTO) 64 % (42-75); PLATELET COUNT 247 10^3/uL (130-400); RED BLOOD COUNT 3.66 10^6/uL (4.35-5.85); RED CELL DISTRIBUTION WIDTH 15.7 % (10.0-14.5); WHITE BLOOD COUNT 4.2 10^3/uL (4.3-11.0)
[2018-02-20 11:22] LABS: ALANINE AMINOTRANSFERASE 22 U/L (0-55); ALBUMIN 4.2 GM/DL (3.2-4.5); ALKALINE PHOSPHATASE 90 U/L (40-136); BILIRUBIN,TOTAL 0.4 MG/DL (0.1-1.0); BUN/CREATININE RATIO 25; CALCIUM 9.8 MG/DL (8.5-10.1); CARBON DIOXIDE 19 MMOL/L (21-32); CHLORIDE 108 MMOL/L (98-107); CREATININE SERUM 0.72 MG/DL (0.60-1.30); GFR ESTIMATED > 60; GLUCOSE 118 MG/DL (70-105); MAGNESIUM 2.1 MG/DL (1.8-2.4); POTASSIUM 4.1 MMOL/L (3.6-5.0); SODIUM 138 MMOL/L (135-145)
[2018-03-07 12:40] LABS: BASOPHILS % (AUTO) 0 % (0-10); EOSINOPHILS # (AUTO) 0.1 10^3/uL (0.0-0.3); EOSINOPHILS % (AUTO) 3 % (0-10); HEMATOCRIT 31 % (35-52); HEMOGLOBIN 10.6 G/DL (11.5-16.0); LYMPHOCYTES # (AUTO) 1.3 X 10^3 (1.0-4.0); LYMPHOCYTES % (AUTO) 32 % (12-44); MEAN CORPUSCULAR HEMOGLOBIN 32 PG (25-34); MEAN CORPUSCULAR HGB CONC 34 G/DL (32-36); MEAN CORPUSCULAR VOLUME 94 FL (80-99); MEAN PLATELET VOLUME 9.3 FL (7.4-10.4); MONOCYTES # (AUTO) 0.6 X 10^3 (0.0-1.0); MONOCYTES % (AUTO) 14 % (0-12); NEUTROPHILS # (AUTO) 2.1 X 10^3 (1.8-7.8); NEUTROPHILS % (AUTO) 52 % (42-75); PLATELET COUNT 81 10^3/uL (130-400); RED BLOOD COUNT 3.36 10^6/uL (4.35-5.85); RED CELL DISTRIBUTION WIDTH 16.1 % (10.0-14.5); WHITE BLOOD COUNT 4.1 10^3/uL (4.3-11.0)
[2018-03-07 13:01] LABS: BUN/CREATININE RATIO 18; CALCIUM 9.2 MG/DL (8.5-10.1); CARBON DIOXIDE 25 MMOL/L (21-32); CHLORIDE 108 MMOL/L (98-107); CREATININE SERUM 0.71 MG/DL (0.60-1.30); GFR ESTIMATED > 60; GLUCOSE 98 MG/DL (70-105); POTASSIUM 4.2 MMOL/L (3.6-5.0); SODIUM 139 MMOL/L (135-145)
[2018-03-13 10:43] LABS: BASOPHILS % (AUTO) 0 % (0-10); EOSINOPHILS % (AUTO) 0 % (0-10); HEMATOCRIT 34 % (35-52); HEMOGLOBIN 11.4 G/DL (11.5-16.0); LYMPHOCYTES # (AUTO) 0.6 X 10^3 (1.0-4.0); LYMPHOCYTES % (AUTO) 18 % (12-44); MEAN CORPUSCULAR HEMOGLOBIN 31 PG (25-34); MEAN CORPUSCULAR HGB CONC 33 G/DL (32-36); MEAN CORPUSCULAR VOLUME 94 FL (80-99); MEAN PLATELET VOLUME 9.6 FL (7.4-10.4); MONOCYTES # (AUTO) 0.3 X 10^3 (0.0-1.0); MONOCYTES % (AUTO) 9 % (0-12); NEUTROPHILS # (AUTO) 2.4 X 10^3 (1.8-7.8); NEUTROPHILS % (AUTO) 73 % (42-75); PLATELET COUNT 242 10^3/uL (130-400); RED BLOOD COUNT 3.63 10^6/uL (4.35-5.85); RED CELL DISTRIBUTION WIDTH 17.7 % (10.0-14.5); WHITE BLOOD COUNT 3.3 10^3/uL (4.3-11.0)
[2018-03-13 11:10] LABS: ALANINE AMINOTRANSFERASE 16 U/L (0-55); ALKALINE PHOSPHATASE 83 U/L (40-136); BILIRUBIN,TOTAL 0.3 MG/DL (0.1-1.0); BUN/CREATININE RATIO 20; CALCIUM 9.5 MG/DL (8.5-10.1); CARBON DIOXIDE 19 MMOL/L (21-32); CHLORIDE 112 MMOL/L (98-107); CREATININE SERUM 0.71 MG/DL (0.60-1.30); GFR ESTIMATED > 60; GLUCOSE 120 MG/DL (70-105); MAGNESIUM 2.1 MG/DL (1.8-2.4); POTASSIUM 4.4 MMOL/L (3.6-5.0); SODIUM 140 MMOL/L (135-145); TOTAL PROTEIN 6.7 GM/DL (6.4-8.2)
[~2018-03-15] VITALS: Ht 170.2 cm; Wt 66.2 kg
[~2018-03-15 14:08] MED LIST changes: +CARBOPLATIN IV SCH; +CYANOCOBALAMIN INJ 1000 MCG/ML (CANCER CENTER) ONE; +D5W INJ SCH; +D5W IV SCH; +DEXAMETHASONE INJ SCH; +FAMOTIDINE 20MG/2ML IV (CANCER CTR) IV SCH; +FOSAPREPITANT DIMEGLUMINE 150 MG in NS (IVPB) CANCER CENTER ONLY 150 ML IV SCH; +NS (IVPB) CANCER CENTER 250 ML ONE; +NS IV 1000 ML (CANCER CTR) IV SCH; +ONDANSETRON MDV (CANCER CENTER 8 MG, DEXAMETHASONE PF INJ (CANCER C 10 MG in NS (IVPB) ... IV SCH; +PALONOSETRON 0.25 MG, DEXAMETHASONE 10 MG/NS 50 ML IVPB IV PRN; +PEMETREXED DISODIUM IV SCH; +[UNRECOGNIZED DRUG - OTHER] IV SCH
== END 2018-04-02 | disposition home or self-care (01) ==
LOC: ONC 14:08
PROVIDERS: ATTEND Internal Medicine Hematology & Oncology
DX: Z51.11 Encounter for antineoplastic chemotherapy (principal); C34.12 Malignant neoplasm of upper lobe, left bronchus or lung; C78.7 Secondary malignant neoplasm of liver and intrahepatic bile duct; Z85.038 Personal history of other malignant neoplasm of large intestine; Z79.899 Other long term (current) drug therapy
CPT/HCPCS: 36415; 80048; 80053; 83735; 85025; 96367; 96372; 96374; 96375; 96411; 96413; 99214

== ENCOUNTER → 2018-10-23 | Outpatient (CLI) | payer MEDICARE, OTHER ==
--- NOTE | 2018-10-24 19:17 | Diagnostic Imaging Report ---
INDICATION: Routine screening. COMPARISON: Comparison is made with prior mammograms from 06/05/2017 and 04/13/2016. TECHNIQUE: 2D and 3D bilateral screening mammography was performed with computer-aided detection (CAD) system. FINDINGS: Both breasts are heterogeneously dense, limiting the sensitivity of mammography. The parenchymal pattern is stable. No dominant mass or malignant appearing microcalcifications are seen. Axillae are unremarkable. IMPRESSION: No mammographic features suspicious for malignancy are identified. ACR BI-RADS Category 1: Negative. Result letter will be mailed to the patient. Note: At least 10% of breast cancer is not imaged by mammography. Dictated on workstation # [id number]
== END ==
LOC: RAD 14:50
PROVIDERS: ATTEND Internal Medicine
DX: Z12.31 Encounter for screening mammogram for malignant neoplasm of breast (principal)
CPT/HCPCS: 77067

== ENCOUNTER 2020-11-30 05:39 | Outpatient (CLI) | payer MEDICARE, OTHER ==
[~2020-11-30] VITALS: Ht 170.2 cm; Wt 70.4 kg
[~2020-11-30 05:39] MED LIST changes: -CARBOPLATIN IV SCH; -CYANOCOBALAMIN INJ 1000 MCG/ML (CANCER CENTER) ONE; -D5W INJ SCH; -D5W IV SCH; -DEXAMETHASONE INJ SCH; -FAMOTIDINE 20MG/2ML IV (CANCER CTR) IV SCH; -FOSAPREPITANT DIMEGLUMINE 150 MG in NS (IVPB) CANCER CENTER ONLY 150 ML IV SCH; -NS (IVPB) CANCER CENTER 250 ML ONE; -NS IV 1000 ML (CANCER CTR) IV SCH; -ONDANSETRON MDV (CANCER CENTER 8 MG, DEXAMETHASONE PF INJ (CANCER C 10 MG in NS (IVPB) ... IV SCH; -PALONOSETRON 0.25 MG, DEXAMETHASONE 10 MG/NS 50 ML IVPB IV PRN; -PEMETREXED DISODIUM IV SCH; -[UNRECOGNIZED DRUG - OTHER] IV SCH
[2020-12-02] MEDS ORDERED: GLUC100016 PO (12:09)
[2020-12-02] MEDS ORDERED: OSIM40TA PO (12:09)
[2020-12-02] MEDS ORDERED: VITA1CAP PO (12:09)
[2020-12-02] MEDS ORDERED: VITA-261 PO (12:09)
[2020-12-02] MEDS ORDERED: NFPREMP0.3 PO (12:09)
[2020-12-02] MEDS ORDERED: MULT-974 PO (12:09)
== END 2020-12-02 13:54 | disposition home or self-care (01) ==
LOC: PREOP 05:39
PROVIDERS: ATTEND Surgery
DX: Z01.818 Encounter for other preprocedural examination (principal)

== ENCOUNTER 2020-12-07 11:09 | Day surgery (SDC) | payer MEDICARE, OTHER ==
[~2020-12-07] VITALS: Ht 170.2 cm; Wt 73.5 kg
[~2020-12-07 11:09] MED LIST changes: +GLUC100016 PO; +LACTATED RINGERS 1,000 ML IV ONE; +MULT-974 PO; +NFPREMP0.3 PO; +OSIM40TA PO; +VITA-261 PO; +VITA1CAP PO
[2020-12-07] MEDS ORDERED: LACTATED RINGERS 1,000 ML IV STA (11:11)
[2020-12-07 11:26] VITALS: BP 140/65
--- NOTE | 2020-12-07 11:29 | Progress Note-Pre Operative ---
Pre-Operative Progress Note H&P Reviewed The H&P was reviewed, patient examined and no changes noted. Date Seen by Provider: Dec 07, 2020 Time Seen by Provider: : Date H&P Reviewed: Dec 07, 2020 Time H&P Reviewed: : Pre-Operative Diagnosis: hx colon cancer COSME HEALY DO Dec 07, 2020 11:29
[2020-12-07] MEDS ORDERED: PROPOFOL INJECTION 50 ML IV ONE (11:44)
[2020-12-07 13:00] VITALS: BP 99/54
--- NOTE | 2020-12-07 13:05 | Progress Note-Post Operative ---
Post-Operative Progess Note Surgeon (s)/Quill Fixer (s) Surgeon COSME HEALY DO Quill Fixer: na Pre-Operative Diagnosis hx colon cancer Post-Operative Diagnosis colon polyp Procedure & Operative Findings Date of Procedure 12/07/20 Procedure Performed/Findings colonoscopy c hot bx polypectomy Anesthesia Type per consumer attorney Estimated Blood Loss Estimated blood loss (mL): none Specimens/Packing Specimens Removed descending colon polyp COSME HEALY DO Dec 07, 2020 13:05
--- NOTE | 2020-12-07 13:06 | Discharge Inst-Simple/Standard ---
Discharge Inst-Standard Patient Instructions/Follow Up Plan of Care/Instructions/FU: 2 weeks Anita Activity as Tolerated: Yes Discharge Diet: Regular Diet COSME HEALY DO Dec 07, 2020 13:06
[2020-12-07 13:07] VITALS: BP 108/56
[2020-12-07 13:25] VITALS: BP 112/56
[2020-12-07 13:37] VITALS: BP 112/56
--- NOTE | 2020-12-07 16:04 | OPERATIVE REPORT ---
DATE OF SERVICE: 12/07/2020 PREOPERATIVE DIAGNOSIS: History of colon cancer. POSTOPERATIVE DIAGNOSIS: Colon polyp. PROCEDURE: Colonoscopy with hot biopsy polypectomy. SURGEON: Cosme Howard DO ANESTHESIA: Per PLUG OVERWRAP MACHINE TENDER. ESTIMATED BLOOD LOSS: None. COMPLICATIONS: None. INDICATIONS: The patient is a 65-year-old female with history of colon cancer. She needs screening colonoscopy. She understands risks and benefits of procedure and wished to proceed with procedure. Consent was signed in the chart. DESCRIPTION OF PROCEDURE: The patient was taken to the endoscopy suite, placed in left lateral recumbent position. Timeout was performed. Digital rectal exam was performed. No palpable polyps, masses or ulcerations. Scope was inserted in the rectum and advanced all the way to cecum with minimal difficulty. Prep was adequate. Scope was slowly retracted back. There were no polyps, masses or ulcerations within the cecum, ascending, transverse colon, descending colon. A small polyp was present, which hot biopsy polypectomy was performed. Scope was then continuously slowly retracted back until the anastomosis, which had normal appearance. No evidence of any recurrence. Scope was then continuously slowly retracted back into the rectum, where it was also retroflexed noting no other pathology. The scope was then returned to its normal position, slowly withdrawn until completely removed, noting no other pathology. The patient tolerated procedure well without any complications. She was taken to recovery room in stable condition. RECOMMENDATIONS: The patient will repeat colonoscopy per screening guidelines. Any issues be seen at that time. The patient will follow up in the office in 2 weeks to discuss pathology. Job ID: [id number] DocumentID: [id number] Dictated Date: 12/07/2020 13:09:50 Recordings Librarian Date: 12/07/2020 16:03:50 Dictated By: COSME HOWARD DO
--- NOTE | 2020-12-08 07:02 | Anesthesia-General Post-Op ---
MAC Patient Condition Mental Status/LOC: Same as Preop Cardiovascular: Satisfactory Nausea/Vomiting: Absent Respiratory: Satisfactory Pain: Controlled Complications: Absent Post Op Complications Complications None Follow Up Care/Instructions Patient Instructions None needed. Anesthesiology Discharge Order Discharge Order Patient was seen yesterday after the procedure and she was doing well, no complaints, stable vital signs, no apparent adverse anesthesia problems. FER CERVANTES DO Dec 08, 2020 07:02
== END 2020-12-07 13:43 | disposition home or self-care (01) ==
LOC: ENDO 11:09
PROVIDERS: ATTEND Surgery
DX: Z12.11 Encounter for screening for malignant neoplasm of colon (principal); K63.5 Polyp of colon; Z88.8 Allergy status to other drugs, medicaments and biological substances; Z90.2 Acquired absence of lung [part of]; Z85.038 Personal history of other malignant neoplasm of large intestine; Z79.899 Other long term (current) drug therapy; Z80.9 Family history of malignant neoplasm, unspecified; Z82.49 Family history of ischemic heart disease and other diseases of the circulatory system; Z82.5 Family history of asthma and other chronic lower respiratory diseases; Z87.891 Personal history of nicotine dependence; Z98.890 Other specified postprocedural states; Z79.2 Long term (current) use of antibiotics

== ENCOUNTER → 2021-03-31 | Outpatient (CLI) | payer MEDICARE, OTHER ==
[~2021-03-31] MED LIST changes: -LACTATED RINGERS 1,000 ML IV ONE
--- NOTE | 2021-03-31 16:20 | Diagnostic Imaging Report ---
INDICATION: Fall out of bed FINDINGS: The distal radius and ulna appeared intact. The scaphoid and remaining carpus intact. Carpometacarpal joints intact. No fracture can be identified. No focal swelling apparent. IMPRESSION: No acute appearing abnormality. Dictated by: Dictated on workstation # [id number]
--- NOTE | 2021-04-01 09:47 | Diagnostic Imaging Report ---
Indication: Routine screening. Comparison is made with prior mammogram from 10/23/2018 and 06/05/2017. 2-D and 3-D bilateral screening mammography was performed CAD. Both breasts are heterogeneously dense, limiting the sensitivity of mammography. No mass or malignant-appearing microcalcifications are seen. Axillae are unremarkable. IMPRESSION: BI-RADS Category 1 No mammographic features suspicious for malignancy are identified. ACR BI-RADS Category 1: Negative. Result letter will be mailed to the patient. Note: At least 10% of breast cancer is not imaged by mammography. Dictated by: Dictated on workstation # [id number]
== END ==
LOC: RAD 15:30
PROVIDERS: ATTEND Internal Medicine
DX: Z12.31 Encounter for screening mammogram for malignant neoplasm of breast (principal); M25.532 Pain in left wrist; W19.XXXA Unspecified fall, initial encounter
CPT/HCPCS: 73110; 77063; 77067

== ENCOUNTER 2022-04-07 21:48 | Emergency (ER) | payer MEDICARE, OTHER ==
[~2022-04-07] VITALS: Ht 175.2 cm; Wt 75.0 kg
[2022-04-07] MEDS ORDERED: DOXYCYCLINE 100 MG (VIBRAMYCIN) TABLET PO STA (22:27)
[2022-04-07] MEDS ORDERED: cefTRIAXone 1,000 MG VIAL IM ONE (22:30)
[2022-04-07] MEDS ORDERED: LIDOCAINE 1% INJ 20 ML VIAL INJ ONE (22:30)
[2022-04-07] MEDS ORDERED: DOXY100T31 PO (22:31)
[2022-04-07] MEDS ORDERED: CEPH500T PO (22:31)
--- NOTE | 2022-04-07 22:31 | ED Integumentary General ---
General Chief Complaint: Skin/Wound Problems Stated Complaint: POSS STAFF INFECTION IN ELBOW Source: patient Exam Limitations: no limitations History of Present Illness Date Seen by Provider: Apr 07, 2022 Time Seen by Provider: 22:27 Initial Comments Patient is a 66-year-old female presents ED with left arm pain and swelling with redness. She states 5 days ago she may have scraped her elbow while working with metal. She cannot pinpoint a specific injury or potential foreign body that may have resulted in the break in skin. She states she got out of shower around 4:00 today noted some pain and swelling with redness to the left elbow. She has normal range of motion. She denies fever, chills, nausea vomiting, diarrhea, cough, shortness of breath. History of MRSA. Allergies and Home Medications Allergies Coded Allergies: oxaliplatin (Verified Allergy, Unknown, 01/09/18) Patient Home Medication List Home Medication List Reviewed: Yes Cephalexin (Cephalexin) 500 Mg Tablet, 500 MG PO QID Prescribed by: PINO GAXIOLA on 04/07/222230 Doxycycline Monohydrate (Doxycycline Monohydrate) 100 Mg Tablet, 100 MG PO BID Prescribed by: PINO GAXIOLA on 04/07/222230 Estrogen,Con/M-Progest Acet (Prempro 0.3 mg-1.5 mg Tablet) 1 Each Tablet, 1 EACH PO DAILY, (Reported) Entered as Reported by: JULIA CHAMBERS on 12/02/201208 Glucosamine Sulfate 2Kcl (Glucosamine) 1,000 Mg Tablet, 1,000 MG PO DAILY, (Reported) Entered as Reported by: JULIA CHAMBERS on 12/02/201208 Multivitamin (Multi-Vitamin Daily) 1 Each Tablet, 1 EACH PO DAILY, (Reported) Entered as Reported by: JULIA CHAMBERS on 12/02/201208 Osimertinib Mesylate (Tagrisso) 40 Mg Tablet, 5 MG PO HS, (Reported) Entered as Reported by: JULIA CHAMBERS on 12/02/201208 Vitamin B Complex (Vitamin B Complex) 1 Each Capsule, 1 EACH PO DAILY, ( Reported) Entered as Reported by: JULIA CHAMBERS on 12/02/201208 Vitamin E (Dl,Tocopheryl Acet) (Vitamin E) 400 Unit Capsule, 400 UNIT PO DAILY, (Reported) Entered as Reported by: JULIA CHAMBERS on 12/02/20 8934 Review of Systems Review of Systems Constitutional: No chills, No diaphoresis, No malaise EENTM: No blurred vision, No double vision, No eye pain Respiratory: No cough, No dyspnea on exertion Cardiovascular: No chest pain Gastrointestinal: No abdominal pain, No diarrhea, No nausea, No vomiting Genitourinary: No decreased output, No discharge Musculoskeletal: No back pain; joint pain Skin: change in color Psychiatric/Neurological: Denies Anxiety All Other Systems Reviewed Negative Unless Noted: Yes Past Xvqjovh-Rppkrp-Qamyid Hx Patient Social History Tobacco Use?: No Use of E-Cig and/or Vaping dev: No Substance use?: No Alcohol Use?: Yes Alcohol type: Wine Alcohol Frequency: Couple times a week Pt feels they are or have been: No Immunizations Up To Date Tetanus Booster (TDap): Unknown Influenza Vaccine Up-to-Date: Yes; Up-to-Date COVID19 Vaccine 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: [employer] Seasonal Allergies Seasonal Allergies: Yes Past Medical History Surgeries: Yes (EXCISION LESION OF LEG, shoulder surgery, colon resection, liver resection) Abdominal, Lobectomy Respiratory: No Currently Using CPAP: No Currently Using BIPAP: No Cardiac: No Neurological: No Reproductive Disorders: No Female Reproductive Disorders: Denies Sexually Transmitted Disease: No HIV/AIDS: No Genitourinary: No Gastrointestinal: Yes Hepatitis Musculoskeletal: No Endocrine: No HEENT: No Loss of Vision: Denies Hearing Impairment: Denies Cancer: Yes Liver, Lung, Colon Did You Recieve Any Treatments: Yes What Type of Treatment Did You: Chemotherapy Psychosocial: Yes Anxiety Integumentary: No Blood Disorders: Yes (Hepatitis B) Adverse Reaction/Blood Tranf: No Family Medical History Alcoholism 19 FATHER Asthma 19 MOTHER G8 BROTHER Severe allergy G8 BROTHER Visual disorder 19 FATHER 19 MOTHER GI Disease, Lung Disease Physical Exam Vital Signs Capillary Refill : General Appearance: WD/WN, no apparent distress HEENT: PERRL/EOMI, normal ENT inspection, TMs normal, pharynx normal Neck: non-tender, full range of motion, supple, normal inspection Cardiovascular: regular rate, rhythm, no edema, no gallop, no JVD Respiratory: chest non-tender, lungs clear, normal breath sounds, no respiratory distress Gastrointestinal: normal bowel sounds, non tender, soft, no organomegaly Back: normal inspection, no CVA tenderness Extremities: other (Mild swelling and redness to the left posterior olecranon. Skin wound noted without fluctuant mass.) Skin: other (Mild swelling and redness to the left posterior olecranon) Progress/Results/Core Measures Results/Orders My Orders Orders - RODNEY STERLING Ceftriaxone (Rocephin) (04/07/22 22:30) Lidocaine 1% Inj 20 Ml (Xylocaine 1% Inj (04/07/22 22:30) Doxycycline Hyclate Tablet (Vibramycin T (04/07/22 22:27) Departure Communication (PCP) Patient has redness and swelling to the skin overlying the left olecranon. She does have a wound to this area but no fluctuant mass. No significant swelling of the bursa at this time. Due to the overlying redness I do not think a needle should be inserted into the bursa at this time. We will treat with oral antibio tics doxycycline and Keflex. History of MRSA. Denies of any specific trauma. No obvious foreign body. If increased redness and swelling she needs return back to ED for potential IV antibiotics. She does have appropriate range of motion at this time Impression Primary Impression: Olecranon bursitis Disposition: 01 HOME, SELF-CARE Condition: Stable Departure-Patient Inst. Decision time for Depature: 22:30 Referrals: ADITYA OLIVER DO (PCP/Family) Primary Care Physician Patient Instructions: Olecranon Bursitis Scripts Doxycycline Monohydrate (Doxycycline Monohydrate) 100 Mg Tablet 100 MG PO BID for 7 Days, #14 TAB Prov: RODNEY STERLING 04/07/22 Cephalexin (Cephalexin) 500 Mg Tablet 500 MG PO QID for 7 Days, #28 TAB Prov: RODNEY STERLING 04/07/22 RODNEY STERLING Apr 07, 2022 22:31
[2022-04-07 22:43] VITALS: BP 144/88
== END 2022-04-07 22:44 | disposition home or self-care (01) ==
LOC: EDUNIT# 21:48 → ER 21:50
DX: M70.22 Olecranon bursitis, left elbow (principal); Z86.14 Personal history of Methicillin resistant Staphylococcus aureus infection
CPT/HCPCS: 99284

== ENCOUNTER → 2022-11-01 | Outpatient (CLI) | payer MEDICARE, OTHER ==
[~2022-11-01] MED LIST changes: +CEPH500T PO; +DOXY100T31 PO
--- NOTE | 2022-11-01 12:38 | Diagnostic Imaging Report ---
INDICATION: Routine screening. COMPARISON: 03/31/2021 and 10/23/2018. TECHNIQUE: 2D and 3D bilateral screening mammography was performed with CAD. FINDINGS: Both breasts are heterogeneously dense, limiting the sensitivity of mammography. The parenchymal pattern is stable. No mass or malignant-appearing microcalcifications are seen. The axillae are unremarkable. IMPRESSION: No mammographic features suspicious for malignancy are identified. ACR BI-RADS Category 1: Negative. Result letter will be mailed to the patient. Note: At least 10% of breast cancer is not imaged by mammography. Dictated by: Dictated on workstation # [id number]
== END ==
LOC: RAD 10:15
PROVIDERS: ATTEND Internal Medicine
DX: Z12.31 Encounter for screening mammogram for malignant neoplasm of breast (principal)
CPT/HCPCS: 77063; 77067